=== PATIENT | male | born 1970 | race Caucasian/White ===

== ENCOUNTER 2018-10-23 16:21 | Emergency (ER) | payer MEDICARE ==
[~2018-10-23] VITALS: Ht 184.2 cm; Wt 161.2 kg
[2018-10-23 16:58] LABS: BASOPHILS # (AUTO) 0.03 x10^3/uL (0-0.1); BASOPHILS % (AUTO) 0 % (0-1); EOSINOPHILS # (AUTO) 0.09 x10^3/uL (0-0.4); EOSINOPHILS % (AUTO) 1 % (1-7); LYMPHOCYTES # (AUTO) 1.83 x10^3/uL (1-3.4); LYMPHOCYTES % (AUTO) 24 % (22-44); MD NO; MEAN CORPUSCULAR HEMOGLOBIN 27.4 pg (27.5-34.5); MEAN CORPUSCULAR HGB CONC 32.7 g/dL (33.2-36.2); MEAN CORPUSCULAR VOLUME 83.8 fL (81-97); MEAN PLATELET VOLUME 8.8 fL (7.4-10.4); MONOCYTES # (AUTO) 0.53 x10^3/uL (0.2-0.8); MONOCYTES % (AUTO) 7 % (2-9); NEUTROPHILS # (AUTO) 5.34 x10^3/uL (1.8-6.8); NEUTROPHILS % (AUTO) 68 % (42-75); PLATELET COUNT 298 x10^3/uL (130-400); RED BLOOD COUNT 5.41 x10^6/uL (4.38-5.82); RED CELL DISTRIBUTION WIDTH 14.3 % (9.4-14.8)
[2018-10-23 17:11] LABS: ALBUMIN 3.4 g/dL (3.4-5.0); ANION GAP 9 mmol/L (5-15); CALCIUM 8.7 mg/dL (8.5-10.1); CHLORIDE 103 mmol/L (98-107)
[2018-10-23 17:17] LABS: CREATININE 0.95 mg/dL (0.7-1.3); TROPONIN I < 0.015 ng/mL (0.000-0.045)
--- NOTE | 2018-10-23 18:12 | NUR ---
[facility]
--- NOTE | 2018-10-23 18:20 | NUR ---
FIRST CONTACT WITH PT: Pt resting on gurney. Spouse at bedside. Pt's states, "The whole family has been sick." Pt states, "I have a cough, it hurts to breathe, chest pain, body aches, for a couple of weeks, last few days it has gotten worse." Pt able to speak in full sentences. Pt showing RN pictures of himself as dressed as [employer] for his [place] work [place] the [employer]. All safety measures in place. Pt connected to all monitors. NADN. No needs expressed at this time.
[2018-10-23] MEDS ORDERED: HYDR-3245 PO (18:32)
[2018-10-23] MEDS ORDERED: morphine PO (18:32)
[2018-10-23] MEDS ORDERED: KETOROLAC 30 MG/1 ML IM ONE (19:00)
--- NOTE | 2018-10-23 19:04 | NUR ---
Provided report to JOI Carmona. All questions answered.
[2018-10-23 19:31] LABS: TROPONIN I < 0.015 ng/mL (0.000-0.045)
[2018-10-23] MEDS ORDERED: KETOROLAC 30 MG/1 ML ONE (20:07)
[2018-10-23 20:16] VITALS: BP 143/84
== END 2018-10-23 20:44 | disposition home or self-care (01) ==
LOC: ED 20:38
DX: J06.9 Acute upper respiratory infection, unspecified (principal); R07.89 Other chest pain; E11.9 Type 2 diabetes mellitus without complications
CPT/HCPCS: 36415; 71045; 80048; 82040; 84484; 85025; 93005; 96372; 99284; J1885